=== PATIENT | male | born 1995 | race Caucasian/White ===

== ENCOUNTER 2018-04-16 21:32 | Emergency (ER) | payer OTHER ==
[~2018-04-16] VITALS: Ht 195.6 cm; Wt 104.5 kg
[2018-04-16 21:33] VITALS: BP 134/60
[2018-04-16] MEDS ORDERED: GABA600T4 PO (21:37)
[2018-04-16] MEDS ORDERED: ZOLO25TA PO (21:37)
[2018-04-16] MEDS ORDERED: IBUP-1022 PO (22:18)
[2018-04-16] MEDS ORDERED: NORCO 5/325MG TABLET (BULK FOR ED) PO ONE (22:30)
== END 2018-04-16 22:32 | disposition home or self-care (01) ==
LOC: M ED 21:32
DX: S56.512A Strain of other extensor muscle, fascia and tendon at forearm level, left arm, initial encounter (principal); X50.9XXA Other and unspecified overexertion or strenuous movements or postures, initial encounter; Y92.39 Other specified sports and athletic area as the place of occurrence of the external cause; Y93.B3 Activity, free weights; Z79.899 Other long term (current) drug therapy

== ENCOUNTER 2018-09-17 14:29 | Emergency (ER) | payer OTHER ==
[~2018-09-17] VITALS: Ht 195.6 cm; Wt 104.9 kg
[~2018-09-17 14:29] MED LIST: GABA600T4 PO; IBUP-1022 PO; ZOLO25TA PO
[2018-09-17] MEDS ORDERED: CLON-412 (14:36)
[2018-09-17 16:57] LABS: BASO % 0.8 % (0.0-1.0); EOS # 0.2 10^3/uL (0.0-0.50); HEMATOCRIT 43.1 % (42.0-52.0); HEMOGLOBIN 14.9 g/dl (13.5-17.5); LYMPH # 1.7 10^3/uL (1.5-6.5); LYMPH % 31.4 % (24.0-44.0); MEAN CORPUSCULAR HEMOGLOBIN 29.6 pg (27.0-33.0); MEAN CORPUSCULAR HGB CONC 34.6 g/dl (32.0-36.5); MEAN CORPUSCULAR VOLUME 85.7 fl (80.0-96.0); MONO # 0.5 10^3/uL (0.0-0.8); MONO % 8.7 % (0.0-5.0); NEUTROPHILS % 56.1 % (36.0-66.0); PLATELET COUNT, AUTOMATED 271 10^3/uL (150-450); RED BLOOD COUNT 5.03 10^6/uL (4.30-6.10); WHITE BLOOD COUNT 5.3 10^3/uL (4.0-10.0)
[2018-09-17 17:34] LABS: ALBUMIN 4.4 GM/DL (3.2-5.2); ALT/SGPT 34 U/L (12-78); BILIRUBIN,DIRECT 0.2 MG/DL (0.0-0.2); BILIRUBIN,TOTAL 0.5 MG/DL (0.2-1.0); BLOOD UREA NITROGEN 8 MG/DL (7-18); CALCIUM LEVEL 9.8 MG/DL (8.5-10.1); CARBON DIOXIDE LEVEL 30 MEQ/L (21-32); CHLORIDE LEVEL 105 MEQ/L (98-107); CREATININE FOR GFR 0.99 MG/DL (0.70-1.30); GLOMERULAR FILTRATION RATE > 60.0 (>60); GLUCOSE, FASTING 84 MG/DL (70-100); LIPASE 115 U/L (73-393); POTASSIUM SERUM 4.1 MEQ/L (3.5-5.1); SODIUM LEVEL 141 MEQ/L (136-145); TOTAL PROTEIN 7.6 GM/DL (6.4-8.2)
[2018-09-17] MEDS ORDERED: ONDANSETRON 4 MG ORAL DISINTEGRATING TAB (Q0162 PER 1MG) PO ONE (18:15)
[2018-09-17] MEDS ORDERED: MECLIZINE 25 MG TABLET PO ONE (18:15)
[2018-09-17 18:28] LABS: C REACTIVE PROTEIN QUANTITATIV < 0.30 MG/DL (0.00-0.30); CPK CREATINE PHOSPHOKINASE 190 U/L (39-308); THYROID STIMULATING HORMONE 0.687 uIU/ML (0.358-3.740)
[2018-09-17 18:52] LABS: ERYTHROCYTE SEDIMENTATION RATE 1 mm/hr (0-15)
--- NOTE | 2018-09-17 19:00 | REPVR ---
EXAM: CT Head Without Contrast EXAM DATE/TIME: 09/17/2018 6:10 PM CLINICAL HISTORY: 23 years old, male; Dizziness and other: Fatigue, loss of appetite; Additional info: Dizzy, fatigue, loss appetite TECHNIQUE: Imaging protocol: Computed tomography images of the head without contrast. Radiation optimization: All CT scans at this facility use at least one of these dose optimization techniques: automated exposure control; mA and/or kV adjustment per patient size (includes targeted exams where dose is matched to clinical indication); or iterative reconstruction. COMPARISON: No relevant prior studies available. FINDINGS: Brain: The white-ghosh differentiation is preserved demonstrating no acute territorial type infarct. No acute intracranial hemorrhage is seen. No intracranial mass effect. Midline shift: There is no midline shift. Ventricles: No ventriculomegaly. Bones/joints: The calvarium demonstrates no evidence for a depressed fracture. Sinuses: Visualized sinuses are unremarkable. No fluid levels. Mastoid air cells: No mastoid effusion. Soft tissues: Unremarkable. IMPRESSION: No acute intracranial abnormality. Electronically signed by: Rommel Roque On 09/17/2018 19:00:15 PM
[2018-09-17] MEDS ORDERED: ZOFR4TAB16 PO (19:40)
[2018-09-17] MEDS ORDERED: MECL-68 PO (19:40)
[2018-09-17 19:42] VITALS: BP 132/62
--- NOTE | 2018-09-17 20:07 | REP ---
Chest x-ray: Two views. History: Shortness of breath and fatigue. . Comparison study: No comparison study . Findings: The lungs are well inflated and free of infiltrate. The pleural angles are sharp. The heart size is normal. Pulmonary vasculature is not increased. No significant bony abnormality is seen. Impression: Negative chest x-ray. Electronically Signed by Adam Dow MD 09/17/2018 07:59 P
[2018-09-20 00:09] LABS: Lyme Disease IgG/IgM Antibodie <0.91 ISR (0.00-0.90); Lyme Disease IgM Ab Quantitati <0.80 index (0.00-0.79)
== END 2018-09-17 19:54 | disposition home or self-care (01) ==
LOC: M ED 14:29
DX: R42 Dizziness and giddiness (principal); R11.0 Nausea; M79.10 Myalgia, unspecified site; R53.83 Other fatigue; Z87.891 Personal history of nicotine dependence; Z79.899 Other long term (current) drug therapy
CPT/HCPCS: 70450; 71046; 80048; 80076; 82550; 83690; 84443; 85025; 85652; 86140; 86617; 99283; Q0162